=== PATIENT | female | born 1945 | race Caucasian/White ===

== ENCOUNTER 2017-02-28 08:47 | Observation (INO) | payer MEDICARE, OTHER ==
[~2017-02-28] VITALS: Ht 162.6 cm; Wt 80.0 kg
[~2017-02-28 08:47] MED LIST: ATOR10TA PO; HYDR-3240 PO; HYDR500C3 PO; TOPI25TA32 PO
[2017-02-28 09:13] VITALS: BP 100/64
[2017-02-28] MEDS ORDERED: LACTATED RINGERS 1,000 ML IV SCH (09:16)
[2017-02-28] MEDS ORDERED: PLEASE ENTER HEIGHT AND WEIGHT MC SCH (09:30)
[2017-02-28 09:52] LABS: HEMATOCRIT 43.8 % (34.6-47.8); HEMOGLOBIN 14.8 g/dL (11.7-16.4); WHITE BLOOD COUNT 7.5 x10^3/uL (3.4-10)
[2017-02-28 10:03] LABS: BLOOD UREA NITROGEN 28 mg/dL (7-18)
[2017-02-28] MEDS ORDERED: HEPARIN 1,000 UNITS/ML, 10ML ONE (10:13)
[2017-02-28] MEDS ORDERED: BACITRACIN 50,000 UNIT ONE (10:13)
[2017-02-28] MEDS ORDERED: PROTAMINE SULFATE 10 MG/ML, 5ML ONE (10:14)
[2017-02-28] MEDS ORDERED: LIDOCAINE/PF 1%, 30ML ONE (10:14)
[2017-02-28] MEDS ORDERED: PAPAVERINE 30 MG/ML, 2ML ONE (10:14)
[2017-02-28] MEDS ORDERED: THROMBIN 20,000 UNIT VIAL TP ONE (10:15)
[2017-02-28] MEDS ORDERED: NITROPRUSSIDE 25 MG/ML, 2ML ONE (10:15)
[2017-02-28] MEDS ORDERED: EPINEPHRINE 1 MG/ML, 1ML ONE (10:16)
[2017-02-28] MEDS ORDERED: BUPIVACAINE/PF 0.5% ONE (10:16)
[2017-02-28] MEDS ORDERED: MIDAZOLAM 1 MG/ML, 2ML ONE (10:33)
[2017-02-28] MEDS ORDERED: FENTANYL PF 100 MCG/2ML ONE ×3 (10:33→15:27)
[2017-02-28] MEDS ORDERED: ROCURONIUM 10 MG/ML ONE (11:46)
[2017-02-28] MEDS ORDERED: SUCCINYLCHOLINE 20 MG/ML, 10ML ONE (12:29)
[2017-02-28] MEDS ORDERED: CEFAZOLIN 1,000 MG ONE ×2 (12:29)
[2017-02-28] MEDS ORDERED: PROPOFOL 10 MG/ML, 20ML ONE ×2 (12:29)
[2017-02-28] MEDS ORDERED: EPHEDRINE 50 MG/ML, 1ML ONE (14:28)
[2017-02-28] MEDS ORDERED: PHENYLEPHRINE 10 MG/ML ONE (14:29)
[2017-02-28] MEDS ORDERED: PHENYLEPHRINE 10 MG in DEXTROSE 5% 249 ML IV SCH (15:00)
[2017-02-28] MEDS ORDERED: ENOXAPARIN 40 MG/0.4 ML SQ SCH (15:00)
[2017-02-28] MEDS: D5%-LACTATED RINGERS 1,000 ML IV SCH (15:00)
[2017-02-28] MEDS ORDERED: LABETALOL 5MG/ML 40ML VIAL IVPush PRN (15:00)
[2017-02-28] MEDS ORDERED: OXYcodone 5 MG/5 ML ORAL.SOL UDC ONE ×2 (15:28→16:36)
[2017-02-28] MEDS ORDERED: MEPERIDINE/PF 25MG/0.5ML IVPush PRN (15:30)
[2017-02-28] MEDS ORDERED: HYDROmorphone 1 MG/ML, 1ML IV PRN (15:30)
[2017-02-28] MEDS ORDERED: EPHEDRINE 50 MG/ML, 1ML IVPush PRN (15:30)
[2017-02-28] MEDS ORDERED: HYDROcodone/APAP 7.5-325MG/15ML UDC PO PRN (15:30)
[2017-02-28] MEDS ORDERED: METOPROLOL 1 MG/ML, 5ML IV PRN (15:30)
[2017-02-28] MEDS ORDERED: ACETAMINOPHEN 325 MG TABLET PO PRN (15:30)
[2017-02-28] MEDS ORDERED: METOCLOPRAMIDE 5 MG/ML, 2ML IV PRN (15:30)
[2017-02-28] MEDS ORDERED: ONDANSETRON 2MG/ML, 2ML IVPush PRN (15:30)
[2017-02-28] MEDS ORDERED: ALBUTEROL SULFATE 2.5 MG/3 ML NPPB PRN (15:30)
[2017-02-28] MEDS: OXYcodone 5 MG/5 ML ORAL.SOL UDC PO PRN ×2 (15:30→16:38)
[2017-02-28] MEDS ORDERED: hydrALAzine 20 MG/ML, 1ML IV PRN (15:30)
[2017-02-28] MEDS ORDERED: PROMETHAZINE 25 MG/ML, 1ML IV PRN (15:30)
[2017-02-28] MEDS ORDERED: LABETALOL 5MG/ML, 20ML IV PRN (15:30)
[2017-02-28] MEDS: FENTANYL PF 100 MCG/2ML IV PRN ×2 (16:04→16:25)
[2017-02-28 17:30] VITALS: BP 106/52
[2017-02-28 20:52] VITALS: BP 103/52
[2017-02-28] MEDS ORDERED: ATORVASTATIN 10 MG TABLET PO SCH (21:00)
[2017-02-28] MEDS: HYDROXYUREA 500 MG CAPSULE PO SCH (21:00)
[2017-02-28] MEDS: TOPIRAMATE 25 MG TABLET PO SCH (21:22)
[2017-03-01 00:24] VITALS: BP 97/57
[2017-03-01] MEDS: D5%-LACTATED RINGERS 1,000 ML IV SCH (00:54)
[2017-03-01 04:51] VITALS: BP 106/57
[2017-03-01] MEDS: HYDROcodone/APAP 5/325 TABLET PO PRN ×2 (08:03→12:49)
[2017-03-01] MEDS: HYDROXYUREA 500 MG CAPSULE PO SCH (08:10)
[2017-03-01] MEDS: TOPIRAMATE 25 MG TABLET PO SCH (08:10)
[2017-03-01 08:14] VITALS: BP 95/59
[2017-03-01] MEDS ORDERED: HYDR-3240 PO (13:19)
== END 2017-03-01 13:30 | disposition home or self-care (01) ==
LOC: INTOOBSV 08:47 → ORIP 08:47 → 4NOR 17:21 → DCLOUNGE 03-01 13:15
DX: I65.22 Occlusion and stenosis of left carotid artery (principal); I10 Essential (primary) hypertension; E78.5 Hyperlipidemia, unspecified; D75.1 Secondary polycythemia
CPT/HCPCS: 35301; 36415; 80048; 85025; 86850; 86900; 93005; 96372; C1760; C1781; G0378; J0171; J0330; J0690; J1644; J1650; J2250; J2370; J2704; J2720; J3010; J3490; J7120; J2440